=== PATIENT | female | born 2005 | race Caucasian/White ===

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

== ENCOUNTER 2023-04-11 14:43 | Emergency (ER) | payer OTHER ==
[2023-04-11 15:15] VITALS: BP 142/89; RESP 18; TEMP 98.5; BMI 32.3
[2023-04-11] MEDS ORDERED: IBUPROFEN 400 MG TABLET (FP) PO ONE ×2 (17:23→18:00)
[2023-04-11] MEDS ORDERED: DEXAMETHASONE LIQUID 0.5 MG/5 ML PO ONE (17:25)
[2023-04-11] MEDS ORDERED: DEXAMETHASONE SOD PHOSPHATE 10 MG/1 ML VIAL ONE (18:00)
[2023-04-11 19:04] VITALS: PULSE 90
== END 2023-04-11 19:04 | disposition home or self-care (01) ==
LOC: JERFT 14:43
DX: R09.89 Other specified symptoms and signs involving the circulatory and respiratory systems (principal); R05.9 Cough, unspecified; J02.9 Acute pharyngitis, unspecified; J10.1 Influenza due to other identified influenza virus with other respiratory manifestations; R68.83 Chills (without fever); R19.7 Diarrhea, unspecified; Z20.822 Contact with and (suspected) exposure to COVID-19
CPT/HCPCS: 0241U-QW; 87070; 87651; 99283-25

== ENCOUNTER 2024-01-02 21:12 | Emergency (ER) | payer OTHER ==
[2024-01-02 21:18] VITALS: BP 146/88; PULSE 120; RESP 20; TEMP 100.2; BMI 33.9
[2024-01-02] MEDS ORDERED: KETOROLAC TROMETHAMINE 30 MG/1 ML VIAL ONE (23:01)
[2024-01-02] MEDS ORDERED: ONDANSETRON *ODT* 4 MG TABLET ONE (23:01)
[2024-01-02] MEDS: KETOROLAC TROMETHAMINE 30 MG/1 ML VIAL IM ONE (23:06)
[2024-01-02] MEDS: ONDANSETRON *ODT* 4 MG TABLET SL ONE (23:06)
== END 2024-01-02 23:05 | disposition home or self-care (01) ==
LOC: JERFT 21:12
PROC: 3E0233Z Introduction of Anti-inflammatory into Muscle, Percutaneous Approach (ICD-10-PCS; principal; 2024-01-02)
DX: J00 Acute nasopharyngitis [common cold] (principal); J06.9 Acute upper respiratory infection, unspecified; Z20.822 Contact with and (suspected) exposure to COVID-19
CPT/HCPCS: 0241U-QW; 96372; 99284-25; Q0162